=== PATIENT | male | born 1935 | race Caucasian/White ===

== ENCOUNTER 2021-05-06 19:09 | Inpatient (IN) | payer MEDICARE ==
[~2021-05-06] VITALS: Ht 175.3 cm; Wt 61.4 kg
[~2021-05-06 19:09] MED LIST: ASPI325 PO; CHOL10002; IRON325 MG PO; OXYC10ER PO; Percocet 5-3251 EACH PO; [UNRECOGNIZED DRUG - OTHER]
[2021-05-06 19:47] LABS: BASOPHILS ABSOLUTE AUTO 0.04 K/mm3 (0.00-0.23); BASOPHILS PERCENT AUTO 0 % (0-2); EOSINOPHILS ABSOLUTE AUTO 0.21 K/mm3 (0.00-0.68); EOSINOPHILS PERCENT AUTO 2 % (0-6); Hematocrit 39.6 % (37.0-53.0); Hemoglobin 13.8 g/dL (13.5-17.5); IMMATURE GRAN ABSOLUTE AUTO 0.08 K/mm3 (0.00-0.10); IMMATURE GRAN PERCENT AUTO 1 % (0-1); LYMPHOCYTES ABSOLUTE AUTO 0.53 K/mm3 (0.84-5.20); LYMPHOCYTES PERCENT AUTO 4 % (21-46); MONOCYTES PERCENT AUTO 18 % (4-13); Mean Corpuscular HGB 32.4 pg (26.0-34.0); Mean Corpuscular HGB Conc 34.8 g/dL (31.5-36.5); Mean Corpuscular Volume 93 fL (80-100); Mean Platelet Volume 10.1 fL (9.1-12.4); NEUTROPHILS ABSOLUTE AUTO 9.43 K/mm3 (1.96-9.15); NEUTROPHILS PERCENT AUTO 75 % (41-73); Platelet Count 161 K/mm3 (150-400); RDW Coefficient Variation 12.9 % (11.7-14.2); RDW Standard Deviation 43.9 fL (35.1-46.3); Red Blood Cell Count 4.26 M/mm3 (4.30-5.90); White Blood Cell Count 12.59 K/mm3 (4.00-11.30)
[2021-05-06 20:01] LABS: Alanine Aminotransfer (ALT/SGP 31 U/L (12-78); Albumin, Blood 3.5 g/dL (3.4-5.0); Albumin/Globulin Ratio 1.1 (0.8-1.8); Alk Phos 235 U/L (50-136); Anion Gap 7 mmol/L (6-16); Aspartate Aminotrans (AST/SGOT 57 U/L (12-37); Bilirubin, Total 1.2 mg/dL (0.1-1.0); Blood Urea Nitrogen 12 mg/dL (8-24); Bun/Creatinine Ratio 23.2 (12.0-20.0); CO2, Blood 29 mmol/L (21-32); Calcium, Blood 9.1 mg/dL (8.5-10.1); Chloride, Blood 100 mmol/L (98-108); Creatinine, Blood 0.52 mg/dL (0.60-1.20); Globulin, Blood 3.3 g/dL (2.2-4.0); Glomerular Filtration Rate >60 (60-); Glucose, Blood 156 mg/dL (70-99); Potassium, Blood 4.2 mmol/L (3.5-5.5); Sodium, Blood 136 mmol/L (136-145); Total Protein, Blood 6.8 g/dL (6.4-8.2)
[2021-05-06 21:12] LABS: Creatine Kinase MB 9.6 ng/mL (0.0-3.6); Creatine Kinase MB Index 0.9 (0.0-4.0)
[2021-05-06 21:13] LABS: Source, Urine Clean Catch
[2021-05-06 21:20] LABS: Bilirubin, Urine Neg (Neg); Blood, Urine 2+ (Neg); Glucose Qualitative, Urine Neg (Neg); Ketones, Urine 1+ (Neg); Leukocyte Esterase, Urine Neg (Neg); Nitrite, Urine Neg (Neg); Protein, Urine 2+ (Neg); Urobilinogen, Urine NORM (Normal)
[2021-05-06 21:26] LABS: Appearance, Urine Clear (Clear); Color, Urine Yellow (P-Yellow)
[2021-05-06 21:27] LABS: Bacteria Few /hpf; Red Blood Cells, Urine Rare /hpf (0-2); Squamous Epithelial Cells Many /hpf (Few); White Blood Cells, Urine Not Seen /hpf (0-5)
[2021-05-06 23:12] LABS: SARS-Cov-2 (COVID-19) PCR, MMC NEGATIVE (NEGATIVE)
--- NOTE | 2021-05-06 23:53 | NUR ---
LAB NOTIFIED OF TOX SCREEN TO ADD ON TO COLLECTED URINE SAMPLE FROM ER.
[2021-05-07 00:09] LABS: U Amphetamine Screen Not Detected; U Barbituate Screen Not Detected; U Benzodiazapine Screen Not Detected; U Buprenorphine Screen Not Detected; U Cannabinoids Screen Not Detected; U Cocaine Screen Not Detected; U Methadone Screen Not Detected; U Methamphetamine Screen Not Detected; U Opiates Screen Not Detected; U Oxycodone Screen Not Detected; U Phencyclidine Screen Not Detected; U Propoxyphene Screen Not Detected
--- NOTE | 2021-05-07 03:58 | NUR ---
SHIFT SUMMARY NO ACUTE CHANGES SINCE ARRIVAL TO FLOOR. PT HAS BEEN RESTING WELL. DENIES R HIP PAIN AT REST. NPO. IVF INFUSING PER ORDERS. ENCOURAGING PT TO USE BEDSIDE URINAL. BED ALARM IN PLACE FOR OCCASSIONAL CONFUSION. MONITORING CIWAS PER ORDERS. CALL LIGHT WITHIN REACH.
[2021-05-07 05:06] LABS: BASOPHILS ABSOLUTE AUTO 0.04 K/mm3 (0.00-0.23); BASOPHILS PERCENT AUTO 0 % (0-2); EOSINOPHILS ABSOLUTE AUTO 0.01 K/mm3 (0.00-0.68); EOSINOPHILS PERCENT AUTO 0 % (0-6); Hematocrit 38.1 % (37.0-53.0); Hemoglobin 13.1 g/dL (13.5-17.5); IMMATURE GRAN ABSOLUTE AUTO 0.03 K/mm3 (0.00-0.10); IMMATURE GRAN PERCENT AUTO 0 % (0-1); LYMPHOCYTES ABSOLUTE AUTO 0.83 K/mm3 (0.84-5.20); LYMPHOCYTES PERCENT AUTO 9 % (21-46); MONOCYTES ABSOLUTE AUTO 1.81 K/mm3 (0.16-1.47); MONOCYTES PERCENT AUTO 19 % (4-13); Mean Corpuscular HGB 32.3 pg (26.0-34.0); Mean Corpuscular HGB Conc 34.4 g/dL (31.5-36.5); Mean Corpuscular Volume 94 fL (80-100); Mean Platelet Volume 10.2 fL (9.1-12.4); NEUTROPHILS ABSOLUTE AUTO 6.73 K/mm3 (1.96-9.15); NEUTROPHILS PERCENT AUTO 71 % (41-73); Platelet Count 142 K/mm3 (150-400); RDW Standard Deviation 45.1 fL (35.1-46.3); Red Blood Cell Count 4.06 M/mm3 (4.30-5.90); White Blood Cell Count 9.45 K/mm3 (4.00-11.30)
[2021-05-07 05:40] LABS: Alanine Aminotransfer (ALT/SGP 26 U/L (12-78); Albumin, Blood 3.1 g/dL (3.4-5.0); Albumin/Globulin Ratio 0.9 (0.8-1.8); Alk Phos 199 U/L (50-136); Anion Gap 6 mmol/L (6-16); Aspartate Aminotrans (AST/SGOT 39 U/L (12-37); Bilirubin, Total 1.3 mg/dL (0.1-1.0); Blood Urea Nitrogen 12 mg/dL (8-24); Bun/Creatinine Ratio 21.8 (12.0-20.0); CO2, Blood 29 mmol/L (21-32); CPK Creatine Kinase 591 U/L (39-308); Calcium, Blood 8.1 mg/dL (8.5-10.1); Chloride, Blood 101 mmol/L (98-108); Creatinine, Blood 0.55 mg/dL (0.60-1.20); Globulin, Blood 3.3 g/dL (2.2-4.0); Glomerular Filtration Rate >60 (60-); Glucose, Blood 131 mg/dL (70-99); Potassium, Blood 3.9 mmol/L (3.5-5.5); Sodium, Blood 136 mmol/L (136-145); Total Protein, Blood 6.4 g/dL (6.4-8.2)
--- NOTE | 2021-05-07 14:23 | NUR ---
INTO SDS VIA BED FROM SURG FLOOR. History, Chart, Medications and Allergies reviewed before start of procedure.Patient confirms NPO status and agrees with scheduled surgery. Lungs clear T/O to Auscultation. Surgical site prepped with 2% Chlorhexidine cloth wipe.
--- NOTE | 2021-05-07 14:25 | NUR ---
PT TO SURGERY AT THIS TIME. OR CHECK LIST COMPLETED. IN A GOWN AND IV SALINE LOCKED.
--- NOTE | 2021-05-07 17:22 | NUR ---
05/07/21 172 Kaye Bañuelos PATIENT ARRIVED TO OR WITH QUARTER SIZE PRESSURE ULCERATION ABOVE RIGHT HIP, NOTIFED PRIOR TO SURGERY START.
--- NOTE | 2021-05-07 17:45 | NUR ---
SHIFT SUMMARY PT STATUS POST FOR R HIP CEPHALOMEDULLARY RODDING. PT IS A/O x3 AND HAS NO C/O PAIN. [address] GAUZE [address]AM [address]INGS [address] PL[address] ON THE R HIP CDI. TOLERATING REGULAR DIET. VSS. WILL REPORT TO ONCOMING RN.
[2021-05-08 04:38] LABS: BASOPHILS ABSOLUTE AUTO 0.01 K/mm3 (0.00-0.23); BASOPHILS PERCENT AUTO 0 % (0-2); EOSINOPHILS PERCENT AUTO 0 % (0-6); Hematocrit 31.5 % (37.0-53.0); Hemoglobin 10.8 g/dL (13.5-17.5); IMMATURE GRAN ABSOLUTE AUTO 0.03 K/mm3 (0.00-0.10); IMMATURE GRAN PERCENT AUTO 0 % (0-1); LYMPHOCYTES ABSOLUTE AUTO 0.63 K/mm3 (0.84-5.20); LYMPHOCYTES PERCENT AUTO 6 % (21-46); MONOCYTES ABSOLUTE AUTO 1.82 K/mm3 (0.16-1.47); MONOCYTES PERCENT AUTO 18 % (4-13); Mean Corpuscular HGB 32.4 pg (26.0-34.0); Mean Corpuscular HGB Conc 34.3 g/dL (31.5-36.5); Mean Corpuscular Volume 95 fL (80-100); Mean Platelet Volume 10.3 fL (9.1-12.4); NEUTROPHILS ABSOLUTE AUTO 7.39 K/mm3 (1.96-9.15); NEUTROPHILS PERCENT AUTO 75 % (41-73); Platelet Count 128 K/mm3 (150-400); RDW Coefficient Variation 12.9 % (11.7-14.2); Red Blood Cell Count 3.33 M/mm3 (4.30-5.90); White Blood Cell Count 9.88 K/mm3 (4.00-11.30)
[2021-05-08 05:01] LABS: Alanine Aminotransfer (ALT/SGP 25 U/L (12-78); Albumin, Blood 2.6 g/dL (3.4-5.0); Albumin/Globulin Ratio 0.9 (0.8-1.8); Alk Phos 144 U/L (50-136); Anion Gap 4 mmol/L (6-16); Aspartate Aminotrans (AST/SGOT 25 U/L (12-37); Bilirubin, Total 0.5 mg/dL (0.1-1.0); Blood Urea Nitrogen 14 mg/dL (8-24); Bun/Creatinine Ratio 23.6 (12.0-20.0); CO2, Blood 30 mmol/L (21-32); Calcium, Blood 7.9 mg/dL (8.5-10.1); Chloride, Blood 102 mmol/L (98-108); Creatinine, Blood 0.59 mg/dL (0.60-1.20); Glomerular Filtration Rate >60 (60-); Glucose, Blood 127 mg/dL (70-99); Magnesium, Blood 2.3 mg/dL (1.6-2.4); Potassium, Blood 4.2 mmol/L (3.5-5.5); Sodium, Blood 136 mmol/L (136-145); Total Protein, Blood 5.6 g/dL (6.4-8.2)
--- NOTE | 2021-05-08 07:27 | NUR ---
SHIFT SUMMARY POD1 R GAMMA RODDING, A/O X4, VSS, TOLERATING DIET, DENIES PAIN, AMBULATES c ASSISTANCE, VOIDING WELL. NO ACUTE EVENTS THIS SHIFT. CALL LIGHT IN REACH, REPORT GIVEN TO DAY RN.
--- NOTE | 2021-05-08 17:14 | NUR ---
summary NO ACUTE CHANGES T/O SHIFT. PT SITTING UP IN RECLINER W/FEET ELEVATED. WORKED W/THERAPY THIS SHIFT. TOLERATING DIET. MEDICATED ONCE DURING SHIFT W/TYLENOL PER ORDERS FOR R HIP PAIN. CALL LIGHT IN REACH.
[2021-05-09 04:50] LABS: BASOPHILS ABSOLUTE AUTO 0.05 K/mm3 (0.00-0.23); BASOPHILS PERCENT AUTO 1 % (0-2); EOSINOPHILS ABSOLUTE AUTO 0.05 K/mm3 (0.00-0.68); EOSINOPHILS PERCENT AUTO 1 % (0-6); Hematocrit 29.6 % (37.0-53.0); Mean Corpuscular HGB 32.3 pg (26.0-34.0); Mean Corpuscular HGB Conc 33.8 g/dL (31.5-36.5); Mean Corpuscular Volume 96 fL (80-100); Mean Platelet Volume 10.2 fL (9.1-12.4); Platelet Count 138 K/mm3 (150-400); RDW Coefficient Variation 12.8 % (11.7-14.2); RDW Standard Deviation 44.9 fL (35.1-46.3); White Blood Cell Count 5.93 K/mm3 (4.00-11.30)
[2021-05-09 04:57] LABS: IMMATURE GRAN ABSOLUTE AUTO 0.02 K/mm3 (0.00-0.10); IMMATURE GRAN PERCENT AUTO 0 % (0-1); LYMPHOCYTES ABSOLUTE AUTO 1.17 K/mm3 (0.84-5.20); LYMPHOCYTES PERCENT AUTO 20 % (21-46); MONOCYTES ABSOLUTE AUTO 1.05 K/mm3 (0.16-1.47); MONOCYTES PERCENT AUTO 18 % (4-13); NEUTROPHILS ABSOLUTE AUTO 3.59 K/mm3 (1.96-9.15); NEUTROPHILS PERCENT AUTO 61 % (41-73)
[2021-05-09 05:08] LABS: Anion Gap 3 mmol/L (6-16); Blood Urea Nitrogen 9 mg/dL (8-24); Bun/Creatinine Ratio 17.2 (12.0-20.0); CO2, Blood 32 mmol/L (21-32); CPK Creatine Kinase 167 U/L (39-308); Calcium, Blood 7.8 mg/dL (8.5-10.1); Chloride, Blood 101 mmol/L (98-108); Creatinine, Blood 0.52 mg/dL (0.60-1.20); Glomerular Filtration Rate >60 (60-); Glucose, Blood 97 mg/dL (70-99); Potassium, Blood 3.7 mmol/L (3.5-5.5); Sodium, Blood 136 mmol/L (136-145)
--- NOTE | 2021-05-09 08:04 | NUR ---
SUMMARY NO ACUTE CHANGES.
--- NOTE | 2021-05-09 17:50 | NUR ---
SHIFT SUMMARY PATIENT ALERT AND ORIENTED THROUGHTOUT SHIFT. TOLERATING REGULAR DIET AND FLUIDS. SBA WITH FWW AND GAIT BELT TO BATHROOM AND WALKED IN JAVIER WITH PHYSICAL THERAPY. PAIN CONTROLLED WITH PO PAIN MEDS. VOIDING WELL. BM THIS SHIFT. RIGHT HIP DRESSINGS CHANGED THIS SHIFT. PLAN TO DISCHARGE TO [facility] WHEN BED AVAIL.
--- NOTE | 2021-05-10 02:19 | NUR ---
SHIFT SUMMARY: POD 3 RIGHT HIP REPAIR PATIENT IS ALERT AND ORIENTED X4. VS ARE WNL AND IS ON RA. PAIN IS MANAGED WITH 1 NORCO. RIGHT HIP HAS 2 AQUACELS THAT ARE C/D/I. PATIENT IS A 1 PERSON ASSIST WITH FWW AND GAIT BELT. DENIES NUMBNESS AND TINGLING IN ALL EXTREMITIES. PATIENT IS TOLERATING PO INTAKE AND VOIDING. HE CALLS APPROPRIATELY. CALL LIGHT WITHIN REACH. THE PLAN IS TO BE DISCHARGED TO [facility] WHEN BED IS AVAILABLE. HE WILL CONTINUE TO WORK WITH PT IN THE MEANTIME.
[2021-05-10 04:18] LABS: BASOPHILS ABSOLUTE AUTO 0.04 K/mm3 (0.00-0.23); BASOPHILS PERCENT AUTO 1 % (0-2); EOSINOPHILS ABSOLUTE AUTO 0.11 K/mm3 (0.00-0.68); EOSINOPHILS PERCENT AUTO 2 % (0-6); Hemoglobin 9.5 g/dL (13.5-17.5); Mean Corpuscular HGB 32.4 pg (26.0-34.0); Mean Corpuscular HGB Conc 33.9 g/dL (31.5-36.5); Mean Corpuscular Volume 96 fL (80-100); Mean Platelet Volume 10.1 fL (9.1-12.4); Platelet Count 151 K/mm3 (150-400); RDW Coefficient Variation 12.7 % (11.7-14.2); RDW Standard Deviation 43.9 fL (35.1-46.3); Red Blood Cell Count 2.93 M/mm3 (4.30-5.90)
[2021-05-10 04:22] LABS: IMMATURE GRAN ABSOLUTE AUTO 0.02 K/mm3 (0.00-0.10); IMMATURE GRAN PERCENT AUTO 0 % (0-1); LYMPHOCYTES PERCENT AUTO 24 % (21-46); MONOCYTES ABSOLUTE AUTO 0.87 K/mm3 (0.16-1.47); MONOCYTES PERCENT AUTO 19 % (4-13); NEUTROPHILS ABSOLUTE AUTO 2.46 K/mm3 (1.96-9.15); NEUTROPHILS PERCENT AUTO 54 % (41-73)
[2021-05-10 12:47] LABS: SARS-Cov-2 (COVID-19) PCR, MMC NEGATIVE (NEGATIVE)
--- NOTE | 2021-05-10 18:45 | NUR ---
DISCHARGE TO [facility]. REPORT CALLED. IV REMOVED. PT DOING VERY WELL. EATING, DRINKING, VOIDING & HAVING BM's. AMBULATING WELL.
== END 2021-05-10 18:45 | DRG 956 ==
LOC: ER 19:09 → SURS 22:04
PROVIDERS: Family Medicine; Orthopaedic Surgery; Student in an Organized Health Care Education/Training Program; ADMIT Family Medicine
PROC: 0QS636Z Reposition Right Upper Femur with Intramedullary Internal Fixation Device, Percutaneous Approach (ICD-10-PCS; principal; 2021-05-07 15:00)
DX: S72.141A Displaced intertrochanteric fracture of right femur, initial encounter for closed fracture (principal); T79.6XXA Traumatic ischemia of muscle, initial encounter; S42.011A Anterior displaced fracture of sternal end of right clavicle, initial encounter for closed fracture; F10.10 Alcohol abuse, uncomplicated; D72.829 Elevated white blood cell count, unspecified; R41.82 Altered mental status, unspecified; R79.89 Other specified abnormal findings of blood chemistry; Z20.822 Contact with and (suspected) exposure to COVID-19; F17.210 Nicotine dependence, cigarettes, uncomplicated; Z79.899 Other long term (current) drug therapy; Z88.2 Allergy status to sulfonamides; Z98.890 Other specified postprocedural states; Z85.01 Personal history of malignant neoplasm of esophagus; W19.XXXA Unspecified fall, initial encounter; Y92.009 Unspecified place in unspecified non-institutional (private) residence as the place of occurrence of the external cause
CPT/HCPCS: 36415; 70450; 71045; 71260; 73030; 74177; 80048; 80053; 81001; 82550; 82553; 83735; 84145; 85025; 93005; 93010; 97110; 97116; 97161; 97166; 97530; 97535; 99285-25; A9270; C1713; C1769; G0480; J0171; J0690; J1100; J1650; J1885; J2250; J2405; J2704; J3010; J7030; J7120; Q9967; U0004

== ENCOUNTER 2023-06-17 20:47 | Emergency (ER) | payer MEDICARE ==
[~2023-06-17] VITALS: Ht 170.2 cm; Wt 54.4 kg
[2023-06-17 21:19] LABS: BASOPHILS ABSOLUTE AUTO 0.04 K/mm3 (0.00-0.23); BASOPHILS PERCENT AUTO 0 % (0-2); EOSINOPHILS PERCENT AUTO 0 % (0-6); Hematocrit 37.6 % (37.0-53.0); Hemoglobin 12.5 g/dL (13.5-17.5); IMMATURE GRAN PERCENT AUTO 1 % (0-1); LYMPHOCYTES PERCENT AUTO 7 % (21-46); MONOCYTES ABSOLUTE AUTO 1.43 K/mm3 (0.16-1.47); MONOCYTES PERCENT AUTO 13 % (4-13); Mean Corpuscular HGB 28.5 pg (26.0-34.0); Mean Corpuscular HGB Conc 33.2 g/dL (31.5-36.5); Mean Corpuscular Volume 86 fL (80-100); Mean Platelet Volume 10.3 fL (9.1-12.4); NEUTROPHILS ABSOLUTE AUTO 8.82 K/mm3 (1.96-9.15); NEUTROPHILS PERCENT AUTO 79 % (41-73); Platelet Count 297 K/mm3 (150-400); RDW Coefficient Variation 12.9 % (11.7-14.2); RDW Standard Deviation 40.1 fL (35.1-46.3); Red Blood Cell Count 4.38 M/mm3 (4.30-5.90); White Blood Cell Count 11.19 K/mm3 (4.00-11.30)
[2023-06-17 21:37] LABS: Albumin, Blood 2.8 g/dL (3.4-5.0); Albumin/Globulin Ratio 0.7 (0.8-1.8); Bilirubin, Total 0.8 mg/dL (0.1-1.0); Bun/Creatinine Ratio 18.6 (12.0-20.0); Calcium, Blood 8.4 mg/dL (8.5-10.1); Creatinine, Blood 0.49 mg/dL (0.60-1.20); Globulin, Blood 4.3 g/dL (2.2-4.0); Potassium, Blood 3.5 mmol/L (3.5-5.5); Total Protein, Blood 7.1 g/dL (6.4-8.2)
[2023-06-17 23:00] VITALS: BP 128/77
== END 2023-06-17 23:20 | disposition home or self-care (01) ==
LOC: ER 20:47
PROVIDERS: Emergency Medicine
DX: M25.552 Pain in left hip (principal); F17.200 Nicotine dependence, unspecified, uncomplicated; Z85.01 Personal history of malignant neoplasm of esophagus; Z88.2 Allergy status to sulfonamides; W18.30XA Fall on same level, unspecified, initial encounter
CPT/HCPCS: 71046; 73502; 80053; 83880; 84484; 85025; 93005; 93010; 99284-25

== ENCOUNTER 2023-07-26 13:38 | Inpatient (IN) | payer MEDICARE ==
[~2023-07-26] VITALS: Ht 170.2 cm; Wt 58.9 kg
[2023-07-26 14:00] LABS: Calcium, Ionized (POC) 1.08 mmol/L (1.10-1.46); Chloride (POC) 89 mmol/L (98-108); Creatinine (POC) 0.4 mg/dL (0.8-1.3); Glucose (ISTAT POC) 105 mg/dL (70-99); Hemoglobin (POC) 9.5 g/dL (13.5-17.5); Potassium (POC) 3.2 mmol/L (3.5-5.5); Sodium (POC) 126 mmol/L (135-148); Total CO2 (POC) 26 mmol/L (21-32)
[2023-07-26 14:19] LABS: BASOPHILS ABSOLUTE AUTO 0.02 K/mm3 (0.00-0.23); BASOPHILS PERCENT AUTO 0 % (0-2); EOSINOPHILS ABSOLUTE AUTO 0.02 K/mm3 (0.00-0.68); EOSINOPHILS PERCENT AUTO 0 % (0-6); Hematocrit 28.1 % (37.0-53.0); Hemoglobin 9.3 g/dL (13.5-17.5); IMMATURE GRAN ABSOLUTE AUTO 0.49 K/mm3 (0.00-0.10); IMMATURE GRAN PERCENT AUTO 5 % (0-1); LYMPHOCYTES ABSOLUTE AUTO 0.81 K/mm3 (0.84-5.20); LYMPHOCYTES PERCENT AUTO 8 % (21-46); MONOCYTES ABSOLUTE AUTO 1.38 K/mm3 (0.16-1.47); MONOCYTES PERCENT AUTO 13 % (4-13); Mean Corpuscular HGB 27.7 pg (26.0-34.0); Mean Corpuscular HGB Conc 33.1 g/dL (31.5-36.5); Mean Corpuscular Volume 84 fL (80-100); Mean Platelet Volume 10.9 fL (9.1-12.4); NEUTROPHILS ABSOLUTE AUTO 7.68 K/mm3 (1.96-9.15); NEUTROPHILS PERCENT AUTO 74 % (41-73); Platelet Count 123 K/mm3 (150-400); RDW Coefficient Variation 14.6 % (11.7-14.2); RDW Standard Deviation 44.6 fL (35.1-46.3); Red Blood Cell Count 3.36 M/mm3 (4.30-5.90)
[2023-07-26 14:28] LABS: Alanine Aminotransfer (ALT/SGP 11 U/L (12-78); Albumin, Blood 2.1 g/dL (3.4-5.0); Albumin/Globulin Ratio 0.6 (0.8-1.8); Alk Phos 90 U/L (50-136); Anion Gap 7 mmol/L (6-16); Aspartate Aminotrans (AST/SGOT 21 U/L (12-37); Bilirubin, Total 0.9 mg/dL (0.1-1.0); Blood Urea Nitrogen 10 mg/dL (8-24); Bun/Creatinine Ratio 19.4 (12.0-20.0); CO2, Blood 28 mmol/L (21-32); Calcium, Blood 7.6 mg/dL (8.5-10.1); Chloride, Blood 95 mmol/L (98-108); Creatinine, Blood 0.52 mg/dL (0.60-1.20); Globulin, Blood 3.3 g/dL (2.2-4.0); Glomerular Filtration Rate 99 (60-); Glucose, Blood 107 mg/dL (70-99); Magnesium, Blood 2.1 mg/dL (1.6-2.4); Phosphorus, Blood 2.5 mg/dL (2.5-4.9); Potassium, Blood 3.3 mmol/L (3.5-5.5); Sodium, Blood 130 mmol/L (136-145); Total Protein, Blood 5.4 g/dL (6.4-8.2)
[2023-07-26 18:48] LABS: Percent Saturation 10.2 % (20.0-50.0)
--- NOTE | 2023-07-26 19:40 | NUR ---
1855 ASSUMED PT FROM ER PATIENT IS AWAKE AND ALERT TO SELF. PATIENT CAME WITH HIS DAUGHTER WHO HAS BEEN HIS CAREGIVER FOR A WHILE NOW. PATIENT VS STABLE PULSE SINUS 90'S FEBRILE 100.1 F. PTS WEIGHT 123LBS, HE IS VERY THIN AND FRAILE AND DANIELLE. HE HAS TWO WOUNDS TO HIS BACK, PICTURES TAKEN. VERY DANIELLE COCCYX WITH AN OPEN ABRASED WOUND AND SPINE MID BACK ABRASION WOUND AND A FAT PAD THAT IS PURPLE RIGHT NEXT TO IT. PATIENT DENIES PAIN EXCEPT WHEN BP CUFF GOES OFF. HE WAS COVERED WITH LOOSE DRY STOOL ON HIS THIGHS AND WAS PROMPTLY BATHED BY DIRECTOR OF MATH AND RN. HEH TWO PERIPHERAL IVS BILAT AC AND POTASSIUM IV GOING INTO ONE OF THE IV'S. REPORT GIVEN TO NEXT ONCOMING SHIFT TO RESUME CARE.
[2023-07-26 20:30] VITALS: BP 112/57
[2023-07-27] VITALS (24 sets, daily range): BP systolic 69–116; BP diastolic 47–75
[2023-07-27 05:51] LABS: Hemoglobin 9.6 g/dL (13.5-17.5); Mean Corpuscular HGB 27.9 pg (26.0-34.0); Mean Corpuscular HGB Conc 34.3 g/dL (31.5-36.5); Mean Corpuscular Volume 81 fL (80-100); Mean Platelet Volume 10.8 fL (9.1-12.4); Platelet Count 103 K/mm3 (150-400); RDW Coefficient Variation 14.6 % (11.7-14.2); RDW Standard Deviation 43.1 fL (35.1-46.3); Red Blood Cell Count 3.44 M/mm3 (4.30-5.90); White Blood Cell Count 13.29 K/mm3 (4.00-11.30)
[2023-07-27 06:19] LABS: Bun/Creatinine Ratio 22.4 (12.0-20.0); Calcium, Blood 7.6 mg/dL (8.5-10.1); Creatinine, Blood 0.49 mg/dL (0.60-1.20); Free Thyroxine 1.14 ng/dL (0.70-1.60); Magnesium, Blood 2.1 mg/dL (1.6-2.4); Potassium, Blood 3.9 mmol/L (3.5-5.5)
--- NOTE | 2023-07-27 06:19 | NUR ---
SHIFT SUMMARY PATIENT ALERT AND ORIENTED X 2-3. FORGETFUL, GENERALIZED WEAKNESS. HAD NO COMPLAINTS OF PAIN OR SHORTNESS OF BREATH. ON ROOM AIR WITH SPO2 >90%. BLOOD PRESSURE STABLE, NO EVENTS ON TELE. NO ACUTE ISSUES NOTED OVERNIGHT. WILL CONTINUE TO MONITOR. CALL LIGHT WITHIN REACH.
--- NOTE | 2023-07-27 08:20 | NUR ---
Assumed care of pt at 0700. Report received from Freida GUTIERREZ. Pt sleeping at time of report but woke up without difficulty for breakfast. Hard of hearing, talkative. A&O x 1. Sinus rhythm, rate 90. BP stable. SpO2 97% room air.
--- NOTE | 2023-07-27 12:23 | NUR ---
CALL TO this rn called md fairchild due to patient being hypotensive and symptomatic. md fairchild ordered a one time 1000 liter fluid bolus. bolus infusing and patient bp improving. see vital signs section for further detials.
--- NOTE | 2023-07-27 13:00 | NUR ---
Care handoff to Lindsay GUTIERREZ.
--- NOTE | 2023-07-27 13:15 | NUR ---
CARE ASSUMPTION this rn assumed care at approx 1300. blood pressure hypotensive and receiving fluid bolus at assumption of care. daughter, flavia, at bedside. update on patient condition. patient is alert and oriented x2. intermittent confusion. tele sr 75 at this time. see shift assessment and pervious notes for further detials.
--- NOTE | 2023-07-27 14:50 | NUR ---
SVT 1413 PT WENT INTO SVT 170'S WITH A BP OF 58/45, PT WAS AWAKE/ALERT, WE ATTEMPTED VAGAL MANEUVER WHILE CHARGE NURSE CALLED DR. LANDIS. BOLUS WAS STARTED. 1430 DR. LANDIS IN ROOM, 1ST DOSE OF ADENOSINE GIVE 6MG, HR CAME DOWN FOR APPROX 10 SECONDS THEN BACK UP TO 160'S 1431 SECOND DOSE OF ADENOSINE 12MG GIVEN. PT HAD A 5.84 SECOND PAUSE, THEN WENT INTO NSR IN THE 60-70'S WITH STABLE BP. PT IS AWAKE AND DENIES COMPLAINTS, CRASH CART IS PARKED OUTSIDE OF ROOM.
--- NOTE | 2023-07-27 15:52 | NUR ---
Spoke with Primary RN Lindsay, RN Ground Crew Chief Dr Pedro Hill, and discussed case. Family may benefit from code status discussion and advanced care planning. Pt had another bout of SVT. Pt resting in bed upon arrival. Pt A&OX2-3. Pt appropriately verbalizes current place, struggles with reason for hospital stay, and not able to verbalize current year. Pt denies pain at this time. Offered supportive visit and therapeutic listening. Pt agreeable for this RN to call daughter Nichole and provide update. Called and spoke with daughter Tessa. Provided update and reviewed plan of care. Engaged in therapeutic listening as Tessa reports Pt has struggled since his 's passing in 2012. Pt has fallen into a failure to thrive mode. 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 Pt does still have bladder cancer and used to see his urologist approximately every 6 months to have the tumors removed. Pt has stopped having this done and Pt no longer active. Currently Pt is living with daughter. Pt's appetite is poor and requires assistance with dressing and bathing. Engaged in therapeutic discussion regarding advanced care planning. Gentle education on disease process including trajectory. Discussed the importance of planning for the future including the potential need to consider hospice. Discussed code status wishes with daughter as well. Educated on life sustaing treatments including risks and implications to CPR. Daughter reports Pt's wishes are to be DNR. Daughter reports Pt would be agreeable to be transfered to ICU and receive medications to keep blood pressure up if needed or recommended. Provided Palliative Care contact information and instructed daughter to call with any questions or concerns. [facility] per V/O from Dr Vasquez. Palliative Care will remain available
--- NOTE | 2023-07-27 17:47 | NUR ---
SHIFT SUMMARY see pervious notes for changes throughout the shift. patient blood pressure remains hypotensive, maps >65 at this time. see vitals. updated daughter peggi at bedside. no acute changes since pervious note. daughter at bedside.
[2023-07-28] VITALS (15 sets, daily range): BP systolic 81–126; BP diastolic 46–113
[2023-07-28 01:36] LABS: Source, Urine Voided
[2023-07-28 01:39] LABS: Bilirubin, Urine Neg (Neg); Blood, Urine 3+ (Neg); Glucose Qualitative, Urine Neg (Neg); Ketones, Urine 1+ (Neg); Leukocyte Esterase, Urine 1+ (Neg); Nitrite, Urine Neg (Neg); Protein, Urine Neg (Neg); Specific Gravity, Urine 1.025 (1.003-1.022); Urobilinogen, Urine 2+ (Normal)
[2023-07-28 01:51] LABS: Appearance, Urine Hazy (Clear); Color, Urine Yellow (P-Yellow)
[2023-07-28 01:52] LABS: Bacteria Many /hpf; Squamous Epithelial Cells Few /hpf (Few)
[2023-07-28 04:12] LABS: BASOPHILS ABSOLUTE AUTO 0.02 K/mm3 (0.00-0.23); BASOPHILS PERCENT AUTO 0 % (0-2); EOSINOPHILS ABSOLUTE AUTO 0.01 K/mm3 (0.00-0.68); EOSINOPHILS PERCENT AUTO 0 % (0-6); Hematocrit 26.7 % (37.0-53.0); Hemoglobin 8.9 g/dL (13.5-17.5); IMMATURE GRAN ABSOLUTE AUTO 0.06 K/mm3 (0.00-0.10); IMMATURE GRAN PERCENT AUTO 1 % (0-1); LYMPHOCYTES ABSOLUTE AUTO 0.93 K/mm3 (0.84-5.20); LYMPHOCYTES PERCENT AUTO 11 % (21-46); MONOCYTES ABSOLUTE AUTO 0.97 K/mm3 (0.16-1.47); MONOCYTES PERCENT AUTO 12 % (4-13); Mean Corpuscular HGB 27.8 pg (26.0-34.0); Mean Corpuscular HGB Conc 33.3 g/dL (31.5-36.5); Mean Corpuscular Volume 83 fL (80-100); Mean Platelet Volume 10.7 fL (9.1-12.4); NEUTROPHILS ABSOLUTE AUTO 6.26 K/mm3 (1.96-9.15); NEUTROPHILS PERCENT AUTO 76 % (41-73); Platelet Count 131 K/mm3 (150-400); RDW Coefficient Variation 14.8 % (11.7-14.2); RDW Standard Deviation 45.1 fL (35.1-46.3); White Blood Cell Count 8.25 K/mm3 (4.00-11.30)
[2023-07-28 04:29] LABS: Bun/Creatinine Ratio 20.9 (12.0-20.0); Calcium, Blood 7.3 mg/dL (8.5-10.1); Creatinine, Blood 0.48 mg/dL (0.60-1.20); Magnesium, Blood 1.9 mg/dL (1.6-2.4); Potassium, Blood 3.6 mmol/L (3.5-5.5)
--- NOTE | 2023-07-28 06:22 | NUR ---
SHIFT SUMMARY PATIENT ALERT AND ORIENTED X 2-3. PATIENT CONTINUES TO BE HYPOTENSIVE, MAP REMAINING ABOVE 65. AT 2334 PATIENT CONVERTED INTO SVT IN THE 170'S, HE WAS ASYMPTOMATIC AND SELF CONVERTED BACK TO SINUS RHYTHM ABOUT FOUR MINUTES LATER. PATIENT REPORTS HAVING DIFFICULTY URINATING, BLADDER SCANNED THE PATIENT ON TWO SEPARATE OCCASIONS, BOTH SCANS WERE LESS THAN 400 ML. MEDICATED PER EMAR FOR A HEAD ACHE THIS MORNING. CONTINUES ON ROOM AIR. WILL CONTINUE TO MONITOR. CALL LIGHT WITHIN REACH.
--- NOTE | 2023-07-28 09:22 | NUR ---
CARE ASSUMPTION this rn assumed care at 0700. blood pressure hypotensive maps range from 60-70s. tele sr 70s. patient is alert and oriented x2-3. patient knowns the time of day, that he is in the hospital, and why he is here. patient has intermittent confusion at times. patient states he is in the basement and doesnt want to be a "cellar rat" this rn said he wasn't in the basement and he said i know im in the hospital, but its dark. this rn opened the windows and turned the light on for the patient and showed him the tree changing colors, which seemed to improve the patient mentation. patient reports no pain, chest pain/pressure, or shortness of breath. patient has clear lung sounds. no runs of svt since this rn has assumed care. see shift assessment for further detials. patient worked with physical therapy, occupational therapy, and speech today. see their assessment for further detials. plan of care is up to date.
--- NOTE | 2023-07-28 17:34 | NUR ---
Supportive visit this afternoon. Pt resting in bed and appears more energetic compared to yesterday. Pt still appears mildly confused. Daughter Nichole at bedside. Offered therapeutic listening. Provided brief and gentle education regarding planning for the future. Discussed considering completing POLST. Brief education on each section to complete. Nichole reports after discussion with her brother yesterday family feel Pt's wishes are to be DNR and not Limited Code. She reports Pt would not want to be intubated or have CPR. She is agreeable to have code status changed to DNR. Other family members arrive to visit. Ended visit to allow family to visit. Spoke with Dr Vasquez and discussed case. Placed DNR order in [facility] per V/O from Dr Vasquez. Plan: Obtain copy of POLST if family completes before D/C. Palliative Care will remain available
--- NOTE | 2023-07-28 17:40 | NUR ---
shift summary patient neuro remains intact. family udated and currently at bedside. patient code statu changed from limited to a dnr. order is in. arm band on left arm. no acute changes. bp improved with maps >65. plan of care is up to date.
[2023-07-29] VITALS (9 sets, daily range): BP systolic 96–129; BP diastolic 56–68
[2023-07-29 04:12] LABS: BASOPHILS ABSOLUTE AUTO 0.02 K/mm3 (0.00-0.23); BASOPHILS PERCENT AUTO 0 % (0-2); EOSINOPHILS ABSOLUTE AUTO 0.01 K/mm3 (0.00-0.68); EOSINOPHILS PERCENT AUTO 0 % (0-6); Hematocrit 24.1 % (37.0-53.0); Hemoglobin 8.1 g/dL (13.5-17.5); IMMATURE GRAN ABSOLUTE AUTO 0.08 K/mm3 (0.00-0.10); IMMATURE GRAN PERCENT AUTO 1 % (0-1); LYMPHOCYTES ABSOLUTE AUTO 1.43 K/mm3 (0.84-5.20); LYMPHOCYTES PERCENT AUTO 22 % (21-46); MONOCYTES ABSOLUTE AUTO 1.07 K/mm3 (0.16-1.47); MONOCYTES PERCENT AUTO 16 % (4-13); Mean Corpuscular HGB 27.9 pg (26.0-34.0); Mean Corpuscular HGB Conc 33.6 g/dL (31.5-36.5); Mean Corpuscular Volume 83 fL (80-100); Mean Platelet Volume 10.5 fL (9.1-12.4); NEUTROPHILS ABSOLUTE AUTO 3.98 K/mm3 (1.96-9.15); NEUTROPHILS PERCENT AUTO 60 % (41-73); Platelet Count 148 K/mm3 (150-400); RDW Coefficient Variation 14.8 % (11.7-14.2); RDW Standard Deviation 44.9 fL (35.1-46.3); White Blood Cell Count 6.59 K/mm3 (4.00-11.30)
[2023-07-29 04:47] LABS: Bun/Creatinine Ratio 25.1 (12.0-20.0); Creatinine, Blood 0.44 mg/dL (0.60-1.20); Magnesium, Blood 1.8 mg/dL (1.6-2.4); Potassium, Blood 3.4 mmol/L (3.5-5.5)
--- NOTE | 2023-07-29 06:11 | NUR ---
END OF SHIFT NOTE NO ACUTE EVENTS THIS SHIFT. PT REMAINS ORIENTED X2-3, PLEASANTLY CONFUSED. PT ABLE TO COMMUNICATE NEEDS WITH STAFF. NO RUNS OF SVT THIS SHIFT. HR 80-100'S, SR/ST. SBP 90-110'S, DENIES CHEST PAIN/PRESSURE. SPO2 >95% ON RA, DENIES SOB. PT REPORTS HEADACHE, MEDICATED PER EMAR. PT REPOSITIONED Q2HR AND NEEDED T/O SHIFT FOR COMFORT. 2 LIQUID BM'S THIS SHIFT, ATTENDS CHANGED TO KEEP C/D/I. ABLE TO USE URINAL W/ ASSISTANCE. PT DID PULL OUT IV CATHETER STATING HE FELT ALL TANGLED UP; IV CATHETER TIP INTACT AND NEW IV PLACED BY THIS RN. CALL LIGHT WITHIN REACH, BED IN LOWEST POSITION. WILL REPORT TO ONCOMING RN.
--- NOTE | 2023-07-29 07:00 | NUR ---
Received in room report from Noc RN. Patient is awake and aid is working with him. He is alert and oriented to simple questions and makes other ongoing confusing statments. He follow basic commands and is able to communicate needs. He is on RA and sats >90%. He is able to MAEW but remains weak. He has been scrathing his right arm where he has some small scabs and making them bleed, will cover with dressings. He has 20 ga IV to LAC and is infusing curently TKO. Patient denies any current needs. Patient has urinal at bedside and calls for assistance.
--- NOTE | 2023-07-29 10:52 | NUR ---
Patient has been up in chair since early this am and tolerating well. He was given am PO meds and tolerated well. Aid working with patient for bath now.
--- NOTE | 2023-07-29 12:30 | NUR ---
Patialeena had several Liquid BM's while cleaning him up. He is back to bed. He remains on RA and sats >90%. He stated not very hungry. PT worked with him for a little bit and he tolerated well. No significant changes with patient.
--- NOTE | 2023-07-29 15:17 | NUR ---
Patient has been sleeping in bed and has participated in Care Had Dr Jessenia tracy to help with loose stools. He has been tolerating liquid intake. He remains oriented and when awake loves to talk abou stories. he is on RA and sats >90%. He is a full one person assist. He has urinal at bedside and needs a liitle assistance to position at times.
--- NOTE | 2023-07-29 17:20 | NUR ---
TRANSFER: PT TRANSFERRED TO [facility]. REPORT GIVEN TO MATT MARTIN. FAMILY NOTIFIED. ALL BELONGINGS WITH PT.
[2023-07-30 01:03] LABS: BASOPHILS ABSOLUTE AUTO 0.02 K/mm3 (0.00-0.23); BASOPHILS PERCENT AUTO 0 % (0-2); EOSINOPHILS ABSOLUTE AUTO 0.02 K/mm3 (0.00-0.68); EOSINOPHILS PERCENT AUTO 0 % (0-6); Hematocrit 25.7 % (37.0-53.0); Hemoglobin 8.6 g/dL (13.5-17.5); IMMATURE GRAN ABSOLUTE AUTO 0.07 K/mm3 (0.00-0.10); IMMATURE GRAN PERCENT AUTO 1 % (0-1); LYMPHOCYTES ABSOLUTE AUTO 1.16 K/mm3 (0.84-5.20); LYMPHOCYTES PERCENT AUTO 19 % (21-46); MONOCYTES ABSOLUTE AUTO 0.91 K/mm3 (0.16-1.47); MONOCYTES PERCENT AUTO 15 % (4-13); Mean Corpuscular HGB 27.7 pg (26.0-34.0); Mean Corpuscular HGB Conc 33.5 g/dL (31.5-36.5); Mean Corpuscular Volume 83 fL (80-100); Mean Platelet Volume 10.2 fL (9.1-12.4); NEUTROPHILS ABSOLUTE AUTO 4.03 K/mm3 (1.96-9.15); NEUTROPHILS PERCENT AUTO 65 % (41-73); Platelet Count 164 K/mm3 (150-400); RDW Coefficient Variation 15.2 % (11.7-14.2); RDW Standard Deviation 45.6 fL (35.1-46.3); Red Blood Cell Count 3.11 M/mm3 (4.30-5.90); White Blood Cell Count 6.21 K/mm3 (4.00-11.30)
[2023-07-30 01:21] LABS: Albumin, Blood 1.6 g/dL (3.4-5.0); Anion Gap 3 mmol/L (6-16); Blood Urea Nitrogen 11 mg/dL (8-24); Bun/Creatinine Ratio 25.9 (12.0-20.0); CO2, Blood 27 mmol/L (21-32); Calcium, Blood 7.2 mg/dL (8.5-10.1); Chloride, Blood 105 mmol/L (98-108); Creatinine, Blood 0.42 mg/dL (0.60-1.20); Glomerular Filtration Rate 105 (60-); Glucose, Blood 92 mg/dL (70-99); Magnesium, Blood 1.9 mg/dL (1.6-2.4); Phosphorus, Blood 1.9 mg/dL (2.5-4.9); Potassium, Blood 4.1 mmol/L (3.5-5.5); Sodium, Blood 135 mmol/L (136-145); Vancomycin, Trough 13.3 ug/mL (5.0-10.0)
[2023-07-30 04:39] VITALS: BP 132/65
--- NOTE | 2023-07-30 04:39 | NUR ---
SHIFT SUMMARY PATIENT IS ALERT AND ORIENTED TO SELF ONLY. PATIENT HAS REPORTED NO ACUTE EVENTS THIS SHIFT. PATIENT HAS REPORTED NO PAIN, SOB, VOMITTING OR NAUSEA THIS SHIFT. PATIENT IS INCREASINGLY CONFUSED. PATIENT HAS BEEN RESTING MOST OF SHIFT. ABX INFUSING ORDERED. BED IN LOCKED AND LOWEST POSITION. CALL LIGHT IN PLACE. WILL MONITOR UNTIL SHIFT CHANGE.
[2023-07-30 07:51] VITALS: BP 118/60
--- NOTE | 2023-07-30 09:00 | NUR ---
pt laying in bed with eyes closed, wakes easily, knows where he is but is talking about things that have no context, or fits anything, is redirectable, and follows commands well, lungs are clear a bit dim in bases, on r/a, no cough noted, hrirr, but pt is speaking while listening, and diff to hear, piv to left ac, site is clear and patent, btx4, abd flat soft nontender, incont, briefs in place, will try to use urinal at times, skin is c/w/d, pale, moves arms well, is two person to turn, yovanny, call light in reach.
--- NOTE | 2023-07-30 15:16 | NUR ---
Pt having very loose stools, did a bed change and attends change, visitors in room. mri called and wants to try doing mri at 1600. call light in reach.
--- NOTE | 2023-07-30 18:07 | NUR ---
pt had MRI, returned back to room, daughter in to visit. no acute changes this shift. call light in reach.
[2023-07-30 19:43] VITALS: BP 102/79
[2023-07-31 04:49] VITALS: BP 116/66
--- NOTE | 2023-07-31 05:00 | NUR ---
SHIFT SUMMARY PATIENT IS ALERT AND ORIENTED X2. PATIENT HAS HAD NO ACUTE EVENTS THIS SHIFT. VITAL SIGNS REVIEWED. PATIENT IS RESTING COMFORTABLY IN BED MOST OF NIGHT. PATIENT HAS NOT COMPLAINED OF PAIN, NAUSEA, SOB OR VOMITTING THIS SHIFT. BED IN LOCKED AND LOWEST POSITION. ABX INFUSED ORDERED.
[2023-07-31 05:09] LABS: BASOPHILS ABSOLUTE AUTO 0.05 K/mm3 (0.00-0.23); BASOPHILS PERCENT AUTO 1 % (0-2); EOSINOPHILS ABSOLUTE AUTO 0.03 K/mm3 (0.00-0.68); EOSINOPHILS PERCENT AUTO 0 % (0-6); Hematocrit 27.2 % (37.0-53.0); IMMATURE GRAN ABSOLUTE AUTO 0.07 K/mm3 (0.00-0.10); IMMATURE GRAN PERCENT AUTO 1 % (0-1); LYMPHOCYTES ABSOLUTE AUTO 1.28 K/mm3 (0.84-5.20); LYMPHOCYTES PERCENT AUTO 18 % (21-46); MONOCYTES ABSOLUTE AUTO 0.93 K/mm3 (0.16-1.47); MONOCYTES PERCENT AUTO 13 % (4-13); Mean Corpuscular HGB 27.7 pg (26.0-34.0); Mean Corpuscular HGB Conc 33.1 g/dL (31.5-36.5); Mean Corpuscular Volume 84 fL (80-100); Mean Platelet Volume 10.3 fL (9.1-12.4); NEUTROPHILS ABSOLUTE AUTO 4.74 K/mm3 (1.96-9.15); NEUTROPHILS PERCENT AUTO 67 % (41-73); Platelet Count 184 K/mm3 (150-400); RDW Coefficient Variation 15.2 % (11.7-14.2); Red Blood Cell Count 3.25 M/mm3 (4.30-5.90)
[2023-07-31 05:34] LABS: Albumin, Blood 1.7 g/dL (3.4-5.0); Anion Gap 3 mmol/L (6-16); Blood Urea Nitrogen 13 mg/dL (8-24); Bun/Creatinine Ratio 34.2 (12.0-20.0); CO2, Blood 29 mmol/L (21-32); Calcium, Blood 7.3 mg/dL (8.5-10.1); Chloride, Blood 103 mmol/L (98-108); Creatinine, Blood 0.38 mg/dL (0.60-1.20); Glomerular Filtration Rate 109 (60-); Glucose, Blood 101 mg/dL (70-99); Phosphorus, Blood 2.2 mg/dL (2.5-4.9); Sodium, Blood 135 mmol/L (136-145)
[2023-07-31 07:49] VITALS: BP 105/64
[2023-07-31 13:26] LABS: Vancomycin, Trough 14.9 ug/mL (5.0-10.0)
[2023-07-31 13:53] VITALS: BP 110/63
[2023-07-31 15:10] VITALS: BP 102/58
--- NOTE | 2023-07-31 18:06 | NUR ---
SHIFT SUMMARY A&OX1-2, COOPERATIVE WITH MOST OF THE CARE. DELUSIONAL AT TIMES. PATIENT SLEPT T/O SHIFT. PARTICIPATED WITH THERAPY. DENIED ANY CP/PRESSURE, HEADACHE, DIZZINESS, OR SOB. ROOM AIR WITH CLEAR/DIMINISHED LUNG SOUNDS THROUGHOUT. NO TELE EVENTS REPORTED. APPETITE POOR, HARDLY ATE BREAKFAST OR LUNCH AND REFUSED SUPPLEMENTAL ENSURES. SKIN TEAR NOTED NEAR LEFT ELBOR, PHOTO TAKEN AND ADDED TO CHART. WOUND CLEANSED WITH NS AND COVERED WITH A DRY DRESSING. DAUGHTER AT BEDSIDE. PATIENT EATING DINNER AT THIS TIME.
[2023-07-31 19:51] VITALS: BP 115/66
[2023-08-01] VITALS (7 sets, daily range): BP systolic 89–128; BP diastolic 54–83
--- NOTE | 2023-08-01 04:14 | NUR ---
SHIFT SUMMARY PATIENT IS ALERT AND ORIENTED TO SELF AND LOCATION ONLY. PATIENT HAS HAD NO ACUTE EVENTS THIS SHIFT. VITAL SIGNS REVIEWED. PATIENT HAS NOT COMPLAINED OF PAIN, SOB, NAUSEA OR VOMITTING THIS SHIFT. PATIENT HAS BEEN RESTING THIS SHIFT. IV ABX INFUSED ORDERED. BED IN LOCKED AND LOWEST POSITION. CALL LIGHT IN PLACE. WILL MONITOR UNTIL SHIFT CHANGE.
[2023-08-01 05:39] LABS: Albumin, Blood 1.6 g/dL (3.4-5.0); Anion Gap 3 mmol/L (6-16); Blood Urea Nitrogen 12 mg/dL (8-24); Bun/Creatinine Ratio 27.2 (12.0-20.0); CO2, Blood 29 mmol/L (21-32); Calcium, Blood 7.3 mg/dL (8.5-10.1); Chloride, Blood 101 mmol/L (98-108); Creatinine, Blood 0.44 mg/dL (0.60-1.20); Glomerular Filtration Rate 104 (60-); Glucose, Blood 90 mg/dL (70-99); Phosphorus, Blood 2.6 mg/dL (2.5-4.9); Potassium, Blood 3.9 mmol/L (3.5-5.5); Sodium, Blood 133 mmol/L (136-145)
--- NOTE | 2023-08-01 18:36 | NUR ---
SHIFT SUMMARY A&OX3-4, COOPERATIVE WITH CARE. APPETITE BETTER TODAY, BUT PT WAS SCARED TO EAT BECAUSE OF HAVING RUNNY BM'S X2 TODAY. KILN DOOR REPAIRER RAYSHAWN MET WITH PATIENT AND SUGGESTED NO CAFFEINE, CREON, AND PRN IMMODIUM FOR PT. DR CARRERA VERBALIZED SHE WOULD ORDER THOSE TOMORROW. MEPILEXES REPLACED ON PT'S COCCYX AND UPPER BACK. BOTH SORES ARE OPEN, NO DRAINAGE, AND BLANCHABLE UPON ASSESSMENT THIS MORNING. PATIENT PULLED HIS IV OUT AT 1630 AND A NEW IV PLACED IN R HAND 22G. NO ACUTE CHANGES THIS SHIFT. CT OF ABD/PELVIS DONE. PLAN IS FOR DISCHARGE TO SNF (REQUESTING [facility]) WHEN THERE HAS BEEN NO BLOOD CULTURE GROWTH IN 48HRS. PATIENT'S DAUGHTER IN THE ROOM. BED IN LOWEST POSITION. CALL LIGHT IN REACH.
[2023-08-02 03:01] VITALS: BP 106/70
--- NOTE | 2023-08-02 04:58 | NUR ---
SHIFT SUMMARY NOC PT A/O X 2. PLEASANTLY CONFUSED AND COOPERATIVE WITH CARE. PT HAS MULTIPLE WOUNDS ON COCCYX AND MIDDLE UPPER BACK WITH MEPILEX DRESSING C/D/I. PT BLOOD CULTURES ARE PENDING AND PT IS RECEIVING VANCO ABX COVERAGE. PT HAS HAD ONCE LOOSE INC STOOL SO FAR DURING SHIFT. PT HAS BEEN CONTINENT OF URINE WITH 1PA WITH URINAL. PT ON TELE RUNNING NSR IN 70'S. PT IS CURRENTLY RESTING WITH BED IN LOWEST POSITION, AND CALL LIGHT WITHIN REACH.
[2023-08-02 07:55] VITALS: BP 110/70
[2023-08-02] MEDS ORDERED: ACET325 PO (12:33)
[2023-08-02] MEDS ORDERED: JUVEN PACKET1 EAC3 PO (12:34)
[2023-08-02] MEDS ORDERED: BANATROL PLUS1 EAC1 PO (12:39)
[2023-08-02] MEDS ORDERED: CREON DR 12,001 EACH PO (12:47)
[2023-08-02] MEDS ORDERED: LOPE2C PO (12:51)
[2023-08-02] MEDS ORDERED: METO25 PO (12:55)
[2023-08-02] MEDS ORDERED: MIDO5 PO (12:57)
[2023-08-02] MEDS ORDERED: MULTIPLE VITAM1 EACH PO (13:01)
[2023-08-02] MEDS ORDERED: [UNRECOGNIZED DRUG - OTHER] IV (13:09)
[2023-08-02] MEDS ORDERED: Promod946 ML PO (13:11)
[2023-08-02] MEDS ORDERED: VISBIOME 112.51 EACH PO (13:13)
[2023-08-02 13:45] VITALS: BP 94/52
[2023-08-02 14:09] LABS: Influenza A, PCR NEGATIVE (NEGATIVE); Influenza B, PCR NEGATIVE (NEGATIVE); Resp Syncytial Virus, PCR NEGATIVE (NEGATIVE); SARS-Cov-2 (COVID-19) PCR, MMC NEGATIVE (NEGATIVE)
[2023-08-02 16:11] VITALS: BP 119/61
[2023-08-02 17:45] VITALS: BP 124/68
--- NOTE | 2023-08-02 18:28 | NUR ---
PT TRANSFERRED TO [facility] VIA GURNY, BED TO BED TX RELATED TO IMMOBILITY. CHANGED ATTENDS PRIOR TO DC WITH LG TKT LOOSE BM. CALLED REPORT TO NAYELI AT R 1610. SHE NEEDS SCRIPT FOR MARINOL, WILL CALL DR TINEO AND RN TO DRIVE TO FACILITY [facility].
== END 2023-08-02 18:03 | DRG 871 ==
LOC: ER 13:38 → PCU 13:39 → MEDS 07-27 14:33 → PCU 07-27 14:34 → MEDS 07-29 17:39 → ENPENDDIS 08-02 12:08 → MEDS 08-02 18:03
PROVIDERS: Emergency Medicine; Family Medicine; Hospitalist; Nurse Practitioner Acute Care; ADMIT Hospitalist
PROC: 5A2204Z Restoration of Cardiac Rhythm, Single (ICD-10-PCS; principal; 2023-07-26)
DX: A40.8 Other streptococcal sepsis (principal); J18.9 Pneumonia, unspecified organism; R65.21 Severe sepsis with septic shock; I47.10 Supraventricular tachycardia, unspecified; M46.26 Osteomyelitis of vertebra, lumbar region; E87.1 Hypo-osmolality and hyponatremia; Z68.1 Body mass index [BMI] 19.9 or less, adult; E46 Unspecified protein-calorie malnutrition; J44.0 Chronic obstructive pulmonary disease with (acute) lower respiratory infection; Z66 Do not resuscitate; Z51.5 Encounter for palliative care; Z11.52 Encounter for screening for COVID-19; R55 Syncope and collapse; D73.5 Infarction of spleen; K52.9 Noninfective gastroenteritis and colitis, unspecified; I08.2 Rheumatic disorders of both aortic and tricuspid valves; E87.6 Hypokalemia; E83.39 Other disorders of phosphorus metabolism; D50.9 Iron deficiency anemia, unspecified; F03.90 Unspecified dementia, unspecified severity, without behavioral disturbance, psychotic disturbance, mood disturbance, and anxiety; F17.210 Nicotine dependence, cigarettes, uncomplicated; D69.6 Thrombocytopenia, unspecified; E86.0 Dehydration; D63.8 Anemia in other chronic diseases classified elsewhere; Z88.2 Allergy status to sulfonamides; Z85.028 Personal history of other malignant neoplasm of stomach; Z85.01 Personal history of malignant neoplasm of esophagus
CPT/HCPCS: 0241U; 36415; 36569; 71045; 72148; 74018; 74170; 74176; 80047; 80048; 80053; 80069; 80202; 81001; 82330; 82565; 82607; 82728; 82746; 83540; 83550; 83735; 84100; 84439; 84443; 84484; 85014; 85025; 85027; 87040; 87077; 87086; 87186; 92610; 92960; 93005; 93010; 93306; 94640; 94664; 94760; 94762; 96361; 96365; 96372; 96375; 96376; 97110; 97116; 97162; 97166; 97530; 97535; 99285-25; A9270; C1751; G0378; J0153; J0696; J1650; J2540; J2704; J3370; J3475; J3480; J7030; J7050; Q0167; Q9967

== ENCOUNTER 2023-08-06 16:07 | Emergency (ER) | payer MEDICARE ==
[~2023-08-06] VITALS: Ht 172.7 cm; Wt 54.9 kg
[~2023-08-06 16:07] MED LIST changes: +ACET325 PO; +BANATROL PLUS1 EAC1 PO; +CREON DR 12,001 EACH PO; +JUVEN PACKET1 EAC3 PO; +LOPE2C PO; +METO25 PO; +MIDO5 PO; +MULTIPLE VITAM1 EACH PO; +Promod946 ML PO; +VISBIOME 112.51 EACH PO; +[UNRECOGNIZED DRUG - OTHER] IV
[2023-08-06 17:13] LABS: BASOPHILS ABSOLUTE AUTO 0.07 K/mm3 (0.00-0.23); BASOPHILS PERCENT AUTO 1 % (0-2); EOSINOPHILS ABSOLUTE AUTO 0.04 K/mm3 (0.00-0.68); EOSINOPHILS PERCENT AUTO 1 % (0-6); Hematocrit 29.8 % (37.0-53.0); Hemoglobin 9.7 g/dL (13.5-17.5); IMMATURE GRAN ABSOLUTE AUTO 0.03 K/mm3 (0.00-0.10); IMMATURE GRAN PERCENT AUTO 0 % (0-1); LYMPHOCYTES ABSOLUTE AUTO 1.41 K/mm3 (0.84-5.20); LYMPHOCYTES PERCENT AUTO 20 % (21-46); MONOCYTES ABSOLUTE AUTO 1.09 K/mm3 (0.16-1.47); MONOCYTES PERCENT AUTO 15 % (4-13); Mean Corpuscular HGB 28.4 pg (26.0-34.0); Mean Corpuscular HGB Conc 32.6 g/dL (31.5-36.5); Mean Corpuscular Volume 87 fL (80-100); Mean Platelet Volume 9.6 fL (9.1-12.4); NEUTROPHILS ABSOLUTE AUTO 4.44 K/mm3 (1.96-9.15); NEUTROPHILS PERCENT AUTO 63 % (41-73); Platelet Count 255 K/mm3 (150-400); RDW Coefficient Variation 18.2 % (11.7-14.2); RDW Standard Deviation 56.7 fL (35.1-46.3); Red Blood Cell Count 3.41 M/mm3 (4.30-5.90); White Blood Cell Count 7.08 K/mm3 (4.00-11.30)
[2023-08-06 17:36] LABS: Albumin, Blood 2.1 g/dL (3.4-5.0); Albumin/Globulin Ratio 0.6 (0.8-1.8); Bilirubin, Total 0.6 mg/dL (0.1-1.0); Bun/Creatinine Ratio 30.7 (12.0-20.0); Calcium, Blood 7.6 mg/dL (8.5-10.1); Creatinine, Blood 0.46 mg/dL (0.60-1.20); Globulin, Blood 3.4 g/dL (2.2-4.0); Magnesium, Blood 2.1 mg/dL (1.6-2.4); Potassium, Blood 3.6 mmol/L (3.5-5.5); Total Protein, Blood 5.5 g/dL (6.4-8.2)
[2023-08-06 19:00] VITALS: BP 118/64
== END 2023-08-06 19:25 | disposition home or self-care (01) ==
LOC: ER 16:07
PROVIDERS: Physician Assistant
DX: T82.524A Displacement of infusion catheter, initial encounter (principal); I47.10 Supraventricular tachycardia, unspecified; F17.200 Nicotine dependence, unspecified, uncomplicated; Z88.2 Allergy status to sulfonamides; Z79.899 Other long term (current) drug therapy
CPT/HCPCS: 80053; 83735; 85025; 93005; 93010; 96374; 96375; 99285-25; J0153; J1885; J7030

== ENCOUNTER 2024-05-11 22:43 | Inpatient (IN) | payer MEDICARE ==
[~2024-05-11] VITALS: Ht 172.7 cm; Wt 54.0 kg
[2024-05-11] MEDS ORDERED: MethylPREDNISolone Sod Succ 125 MG Vial IV ONE (22:50)
[2024-05-11] MEDS ORDERED: Ipratropium/Albuterol SulF 2.5-0.5MG/3 ML Amp INH ONE (22:50)
[2024-05-11 22:59] LABS: BASOPHILS ABSOLUTE AUTO 0.07 K/mm3 (0.00-0.23); BASOPHILS PERCENT AUTO 1 % (0-2); EOSINOPHILS ABSOLUTE AUTO 0.58 K/mm3 (0.00-0.68); EOSINOPHILS PERCENT AUTO 6 % (0-6); Hemoglobin 11.4 g/dL (13.5-17.5); IMMATURE GRAN ABSOLUTE AUTO 0.04 K/mm3 (0.00-0.10); IMMATURE GRAN PERCENT AUTO 0 % (0-1); LYMPHOCYTES ABSOLUTE AUTO 5.52 K/mm3 (0.84-5.20); LYMPHOCYTES PERCENT AUTO 54 % (21-46); MONOCYTES ABSOLUTE AUTO 1.07 K/mm3 (0.16-1.47); MONOCYTES PERCENT AUTO 10 % (4-13); Mean Corpuscular HGB 29.5 pg (26.0-34.0); Mean Corpuscular HGB Conc 30.8 g/dL (31.5-36.5); Mean Corpuscular Volume 96 fL (80-100); Mean Platelet Volume 9.8 fL (9.1-12.4); NEUTROPHILS PERCENT AUTO 29 % (41-73); Platelet Count 235 K/mm3 (150-400); RDW Coefficient Variation 15.7 % (11.7-14.2); RDW Standard Deviation 54.7 fL (35.1-46.3); Red Blood Cell Count 3.86 M/mm3 (4.30-5.90); White Blood Cell Count 10.28 K/mm3 (4.00-11.30)
[2024-05-11 23:18] LABS: Calcium, Blood 8.4 mg/dL (8.5-10.1); Creatinine, Blood 0.55 mg/dL (0.60-1.20); Magnesium, Blood 2.1 mg/dL (1.6-2.4); Potassium, Blood 4.4 mmol/L (3.5-5.5)
[2024-05-11 23:52] LABS: Influenza A, PCR NEGATIVE (NEGATIVE); Influenza B, PCR NEGATIVE (NEGATIVE); Resp Syncytial Virus, PCR NEGATIVE (NEGATIVE); SARS-Cov-2 (COVID-19) PCR, MMC NEGATIVE (NEGATIVE)
[2024-05-12] VITALS (16 sets, daily range): BP systolic 75–136; BP diastolic 52–84
[2024-05-12 01:13] LABS: PCO2 Venous 75.3 mmHg (38-42)
[2024-05-12 01:14] LABS: Base Excess Venous -6.7 mmol/L; Bicarbonate Venous 18.2 mmol/L (24.0-30.0)
[2024-05-12] MEDS ORDERED: Midodrine 5 MG Tab PO SCH (05:00)
--- NOTE | 2024-05-12 07:44 | NUR ---
ASSUMING CARE BEDSIDE REPORT FROM OFF GOING NURSE. ASSUMING CARE OF THIS PATIENT AT 0700. VITALS TAKEN AT SHIFT CHANGE BY WOOD CRAFTSMAN. VSS STABLE.
--- NOTE | 2024-05-12 07:45 | NUR ---
ASSUMPTION OF CARE/SHIFT SUMMARY PT ARRIVED TO PCU AROUND 0455 VIA GURNEY. TRANSFERRED TO PCU HOSPITAL BED. PT ARRIVED ON BIPAP SETTING 31/03, 40% FIO2 AND TOLERATING WELL. PT ALSO ARRIVED WITH BILATERAL THORAVENT CHEST TUBES WHICH WERE PLACED TO SUCTION UPON ARRIVAL. 300 MLS OF SEROSANGINEOUS FLUID OUT SINCE ARRIVAL FROM L CHEST TUBE. R SIDE WITH NO DRAINAGE YET. SPO2 99-100% ON BIPAP, RR 22 - 30'S, WOB WNL. PT LETHARGIC, ORIENTED X1 TO SELF/PERSON. PT BRIEFLY OPENS EYES TO TOUCH AND PAIN. ATTEMPTS TO HOLD CONVERSATION BUT QUICKLY FALLS BACK TO SLEEP. PT NPO AT THIS TIME, BEDREST. SKIN INTACT WITH SCATTERED SCABS AND BRUISING. SMALL RED/PURPLE SPOT NOTED ON THE L SCAPULA/BACK AREA, NON-BLANCHABLE; PICS IN CHART. AM CXR COMPLETED, RESULTS PENDING. WILL UPDATE ONCOMING RN.
[2024-05-12 08:07] LABS: Base Excess Venous -6.4 mmol/L; Bicarbonate Venous 18.8 mmol/L (24.0-30.0); PCO2 Venous 46.7 mmHg (38-42); pH Blood Venous 7.26 (7.34-7.37)
[2024-05-12] MEDS ORDERED: Metoprolol Tartrate 25 MG Tab PO SCH (09:00)
[2024-05-12] MEDS ORDERED: Enoxaparin 40 MG/0.4 ML SYR SC SCH (09:00)
[2024-05-12] MEDS ORDERED: CefTRIAXone Sodium 2,000 MG in NS 100 ML IV SCH (09:36)
[2024-05-12] MEDS ORDERED: Azithromycin 500 MG in NS 250 ML IV ONE (09:40)
[2024-05-12] MEDS ORDERED: NS 100 ML IV ONE (09:51)
[2024-05-12] MEDS ORDERED: CefTRIAXone 2000 MG Vial ONE (09:52)
[2024-05-12] MEDS ORDERED: Azithromycin 500 MG VIAL ONE (09:52)
[2024-05-12] MEDS ORDERED: NS 250 ML IV ONE (09:52)
[2024-05-12] MEDS ORDERED: Ipratropium/Albuterol SulF 2.5-0.5MG/3 ML Amp INH SCH (11:05)
[2024-05-12] MEDS ORDERED: Albuterol 2.5 MG/3 ML VIAL INH PRN (11:05)
[2024-05-12] MEDS ORDERED: Insulin Human Lispro 100 Units/ML 3ML Syringe SC SCH ×2 (12:00→16:30)
--- NOTE | 2024-05-12 13:17 | NUR ---
NURSE NOTES PT SITTING UP IN BED ON 3 LITERS NC, BREATHING EVEN AND UNLABORED. PT MEDICATED PER EMAR W/ MIDODRINE 5mg. PT PROVIDED W/ FRESH WATER, CALL LIGHT IN REACH.
[2024-05-12 16:38] LABS: Bicarbonate Venous 21.6 mmol/L (24.0-30.0); PCO2 Venous 42.9 mmHg (38-42); pH Blood Venous 7.34 (7.34-7.37)
--- NOTE | 2024-05-12 18:00 | NUR ---
SHIFT SUMMARY A+O X4, REMOVED FROM BIPAP BY RT, ON NC AT 2 LITERS. PT HAS HAD SOFT BP INTERMET, MAP HAS STAYED ABOVE 60 THROUGHTOUT SHIFT. PT SATURATION ABOVE 90%. DR. OLVERA CONST. EVAUL OF CHEST TUBE AND DRAINAGE SYSTEM, PLACED TEGADERM TO SECURE LINES. PT BREATHING EVEN AND UNLABORED. PT ABLE TO REPOSITION IN BED. USING URINAL IN BED TO VOID. PT L LEG DEFORMED FROM PREVIOUS ACCIDENT. CALL LIGHT IN REACH OF PT.
[2024-05-12] MEDS ORDERED: Melatonin 5 MG Tablet PO PRN (21:00)
[2024-05-12] MEDS ORDERED: Acetaminophen 325 MG TABLET PO PRN (21:05)
[2024-05-13] VITALS (11 sets, daily range): BP systolic 88–105; BP diastolic 49–61
--- NOTE | 2024-05-13 05:16 | NUR ---
SHIFT SUMMARY- PATIENT TOOK OFF OWN OXYGEN DURING THE NIGHT BUT O2 SATS >92% ON RA. BL CHEST TUBES WITH NO NEW OUTPUT OVERNIGHT. LEFT CHEST TUBE HAS SMALL AIR LEAK WHICH SUPPLY CHAIN COORDINATOR IS AWARE OF. RIGHT CHEST TUBE WITH NO DRAINAGE- PER PULM MAY BE REMOVED TODAY. REPEAT CXR COMPLETED THIS AM, RESULTS PENDING. PATIENT'S MARITZA SOFT OVERNIGHT BUT TRENDING BACK UP. TAKES MIDODRINE AT HOME FOR HYPOTENSION, EF- 38%. ASYMPTOMATIC. BLADDER SCAN WITH 500ML URINE, PT ENCOURAGED TO VOID AND VOIDED 450ML IN URINAL. PRN TYLENOL ORDERED FOR MILD PAIN AT CHEST TUBE INSERTION SITES, PROVIDED RELIEF. PRN MELATONIN ORDERED PER PATIENT REQUEST FOR INSOMNIA. NO OTHER ACUTE EVENTS OVERNIGHT. PATIENT A&OX4 AND PLEASANT.
[2024-05-13] MEDS ORDERED: NS 100 ML IV ONE (08:07)
[2024-05-13] MEDS ORDERED: CefTRIAXone 2000 MG Vial ONE (08:08)
--- NOTE | 2024-05-13 12:04 | NUR ---
Upon receiving a referral for spiritual care, I visited the patient. Patient is pleasant and has a good sense of humor. He tells me about the of his spouse and is tearful as he shares about her heart attack and how he has struggled with the grief for many yrs. He talks about his family unit complications and the ache this causes him. He also shares about his Sabianist jennifer and that he has gained much strength from his prayers and connection to God. 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 I reinforce his helpful attitudes and perspectives, hear confession and provided grief support, therapeutic listening and prayer. Patient responded well and showed signs of catharsis and greater peace. I will continue to remain available to patient and family.
[2024-05-13 12:28] LABS: Glucose, Body Fluid 6 mg/dL; Lactate Dehydrogenase, Body Fl 606 U/L; Protein, Body Fluid 0.8 g/dL
--- NOTE | 2024-05-13 18:20 | NUR ---
SHIFT SUMMARY; ASSUMED CARE AT 0700. A/A/OX4. BILATERAL PLEUA VENTS IN PLACE, DRESSINGS SECURE, NO CREPITIS. RIGHT SIDE REMOVED FROM SUCTION BY DR. OLVERA. LEFT SIDE REMAINS TO SUCTION. SLIGHT BUBBLE DUE TO AIR LEAK, PER DR. OLVERA WILL MONITOR AND WAIT FOR IT TO RESOLVE. BED BATH TODAY, DENTURE CARE. USES COMMODE WITH ASSISTANCE AND URINAL AT BEDSIDE. VSS, 96% SATS ON RA. L/S CLEAR T/O. NO ACUTE CHANGES, WILL CONTINUE TO MONITOR AND TREAT UNTIL CHANGE OF SHIFT.
[2024-05-14] VITALS (7 sets, daily range): BP systolic 86–111; BP diastolic 55–66
--- NOTE | 2024-05-14 03:52 | NUR ---
SHIFT SUMMARY- PATIENT HAD A GOOD NIGHT, VSS ON RA BESIDES SOME LOW BP EPISODES THAT WERE ASYMPTOMATIC. PATIENT ON MIDODRINE AT BASELINE. A&OX4, SOME COMPLAINTS OF PAIN AT CHEST TUBE INSERTION SITES MEDICATED WITH PRN TYLENOL WHICH PROVIDED RELIEF. NSR ON TELE WITH [facility]. PLAN IS FOR REPEAT CXR THIS AM WITH POSSIBLE R CHEST TUBE REMOVAL IF THERE IS RESOLUTION OF R PNEUMOTHORAX. LEFT CHEST TUBE STILL HOOKED TO SUCTION WITH PERSISTENT AIR LEAK PRESENT. NO OUTPUT OVERNIGHT. PATIENT VOIDING WITHOUT DIFFICULTY IN URINAL. NO BM THIS SHIFT. RECEIVING IV ROCEPHIN FOR EMPIRIC ANTIBIOTIC COVERAGE. NO EPISODES OF SVT TONIGHT.
[2024-05-14 04:29] LABS: Bun/Creatinine Ratio 21.5 (12.0-20.0); Calcium, Blood 8.5 mg/dL (8.5-10.1); Creatinine, Blood 0.56 mg/dL (0.60-1.20); Potassium, Blood 4.3 mmol/L (3.5-5.5)
--- NOTE | 2024-05-14 07:15 | NUR ---
ASSUMING CARE BEDSIDE SHIFT REPORT FROM OFF GOING NOC NURSE. PT SITTING UP IN BED, ASSESSED CHEST TUBES AND DRAINAGE SYSTEM W/ OFF GOING NURSE. PT BREATHING EVEN AND UNLABORED OXYGEN SATURATION READING 95% ON MONITOR. CALL LIGHT IN REACH
--- NOTE | 2024-05-14 09:02 | NUR ---
PROGRESS NOTE PT MEDICATED PER EMAR, ASSISTED PT TO BSC, PT VOIDED 200MLS OF YELLOW COLORED URINE. ASSISTED PT TO PUT ON PULL UP BRIEFS, PT THEN ASSISTED TO RECLINER CHAIR. PT CIELO MOVEMENT WELL, WITH MIN ASSISTANCE. CALL LIGHT IN REACH OF PT.
--- NOTE | 2024-05-14 11:00 | NUR ---
PROGRESS NOTE PT ROUNDED ON BY DR. ISABELLA FALCON R SIDE CHEST TUBE REMOVED. LEFT SIDE STILL INTACT AND CONECTED TO CLOSED SYSTEM DRAINAGE. PLACED TERGADERM DRESSING OVER TUBE TO REINFORCE IT. PT SITTING UP IN RECLINER AT THIS TIME, CALL LIGHT IN REACH. CONT. PULSE OX READING 95% ON MONITOR.
--- NOTE | 2024-05-14 18:24 | NUR ---
SHIFT SUMMARY PT A+O X4, REPOSTIONING SELF IN BED AND CHAIR, PT SBA TO THE BSC. PT VOIDING YELLOW COLORED URINE THROUGH OUT SHIFT, PT HAD A BOWEL MOVEMENT TODAY. R SIDE CHEST TUBE REMOVED TODAY BY DAWSON CORDERO OVER SITE. L SIDE CHEST TUBE REMAIN IN TACT AND HOOKED TO DRAINAGE SYSTEM AND SUCTION, DRESSING IN TACT. NO CREPITUS NOTED THROUGHOUT SHIFT. VSS STABLE. PT CURRENTLY VISITING WITH FAMILY AT BEDSIDE. CALL LIGHT IN REACH OF PT. WILL CONTINUE TO MONITOR UNTIL END OF SHIFT.
[2024-05-15 04:50] VITALS: BP 108/66
--- NOTE | 2024-05-15 06:34 | NUR ---
SHIFT SUMMARY PATIENT ALERT, ORIENTED x4. ABLE TO MAKE NEEDS KNOWN TO STAFF. BP STABLE. TELE READING SR DURING THE NIGHT, NO CARDIAC EVENTS NOTED BY CNC SERVICE ENGINEER. PATIENT REMAINED ON RA WITH SPO2 >90%. LEFT CHEST TUBE IN PLACE, HOOKED TO SUCTION PER ORDER. SOME INTERMITTENT BUBBLING NOTED, PROVIDER AWARE OF BUBBLING. PATIENT TRANSFERRING TO BEDSIDE COMMODE WITH STAFF ASSISTANCE, ADEQUATE OUTPUT. NO OTHER SIGNIFICANT CHANGES THIS SHIFT, WILL REPORT TO DAY SHIFT RN.
[2024-05-15 08:30] VITALS: BP 112/58
--- NOTE | 2024-05-15 09:13 | NUR ---
Assisted up to BSC for BM. Movements are loose, chronically pt states. Has had removal of bowels from cancer, he states.
[2024-05-15 12:59] VITALS: BP 98/56
--- NOTE | 2024-05-15 13:14 | NUR ---
Spiritual care visit conducted. Patient is lying in bed and alert. He talks at length about struggling to find meaning, purpose and direction since the of his spouse. He is clear on what his Orthodox tradition would say about God's plan for his life, His perfect timing and His greater purposes yet the ache remains in his heart. We explore sources of meaning and value, we discuss his unique gift of bringing bonilla and humor to others and the strength that others feel becuase of his presence. We talk about the love of his family and their desire to have him in their world. I provided therapeutic listening and prayer. Patient responded well and showed signs of increased peace and purpose. I will continue to remain available to patient and family.
[2024-05-15 15:46] VITALS: BP 110/61
[2024-05-15 15:57] VITALS: BP 108/56
--- NOTE | 2024-05-15 17:28 | NUR ---
pt has been alert, oriented and pleasantly conversant this shift. Chest tube on he left chest remains intact, no crepitus. No dyspnea, at rest nor with activity to BSC and eating. No drainage from the chest tube, but continuous gentle bubbling noted in the air leak monitor. Denies pain all shift.
[2024-05-15 20:55] VITALS: BP 109/73
[2024-05-16] VITALS (7 sets, daily range): BP systolic 98–123; BP diastolic 50–69
--- NOTE | 2024-05-16 05:45 | NUR ---
SHIFT SUMMARY PATIENT ALERT, ORIENTEDx4. ABLE TO MAKE NEEDS KNOWN TO STAFF. BP STABLE, TELE READING SR/ST DURING THE NIGHT. PATIENT REMAINED ON RA WITH SPO2 >90%. CHEST TUBE IN PLACE TO LEFT RIBS/CHEST, MINIMAL BUBBLING NOTED IN CHAMBER, HOOKED TO SUCTION PER ORDER. PATIENT USING BEDSIDE COMMODE AND URINAL WITH ADEQUATE OUTPUT. NO OTHER CHANGES DURING THE NIGHT, WILL REPORT TO DAY SHIFT RN.
--- NOTE | 2024-05-16 07:00 | NUR ---
ASSUMPTION OF CARE PT RESTING, WAKENS TO VERBAL STIMULI. PT STS HE NEEDS TO USE THE COMMODE. MINIMAL ASSIST TO COMMODE. PT HAS L CHEST TUBE IN PLACE. VSS AT THIS TIME. CALL LIGHT WITHIN REACH. SEE SHIFT ASSESSMENT.
--- NOTE | 2024-05-16 18:18 | NUR ---
SHIFT SUMMARY PT IS A&OX4 WITH PLEASANT AFFECT. LUNGS REMAIN DIM. L CHEST TUBE REMAINS IN PLACE TO SUCTION WITH INTERMITTENT LEAK. NO CREPITUS NOTED. PT HAS DENIED SOB THROUGHOUT THE DAY. PT RECEIVED SCHEDULED MIDODRINE, MAP REMAINED >65. PT HAD ONE SHORT RUN OF SVT THIS SHIFT, PT ASYMPTOMATIC DURING THIS. PT HAS HAD SEVERAL BMS THIS SHIFT. PT HAS VOIDED WITHOUT DIFFICULTY. VSS THROUGHOUT THE SHIFT. BED IN LOW POSITION, CALL LIGHT WITHIN REACH.
[2024-05-17 04:30] VITALS: BP 102/59
--- NOTE | 2024-05-17 05:31 | NUR ---
SHIFT SUMMARY PATIENT ALERT, ORIENTED x4. ABLE TO MAKE NEEDS KNOWN TO STAFF. CHEST TUBE REMAINS IN PLACE TO SUCTION, LESS BUBBLING NOTED THIS SHIFT WELL SCANT AMOUNT OF DRAINAGE OUT. REMAINS ON RA WITH SPO2 >90%. BP STABLE. OCCASIONAL RUNS OF SVT BUT PATIENT ASYMPOTMAIIC. PATIENT STANDBY ASSIST TO BEDSIDE COMMODE. ADEQUATE OUTPUT THIS SHIFT. NO OTHER CHANGES, WILL REPORT TO DAY SHIFT RN.
[2024-05-17 07:14] VITALS: BP 100/59
[2024-05-17 12:00] VITALS: BP 106/60
[2024-05-17 12:11] LABS: Percent Saturation 9.6 % (20.0-50.0)
[2024-05-17 17:30] VITALS: BP 140/61
[2024-05-17 17:41] VITALS: BP 140/61
--- NOTE | 2024-05-17 19:29 | NUR ---
COBRA TRANSFER PT ALERT, ORIENTED X4; CALM AND [facility]OPER[facility]IVE [facility] CARE. PT DENIES PAIN, CHEST PAIN/PRESSURE, SOB, NAUSEA, DIZZINESS. PT HAD CHEST TUBE TO LEFT SIDE, CREPITUS NOTED INTO ARMPIT, SET TO SUCTION THIS AM, REMOVED FROM APPROX 8:10, 10 XRAY NOTED WORSENING, DR AT BEDSIDE RESTARTED SUCTION. LS DIM T/O. TELE SINUS, BP STABLE. ABD SOFT, NONTENDER +BT. OTHER VSS. NO OTHER ACUTE CHANGES NOTED. REPORT GIVEN TO MATT Harp ASSUMING CARE OF PATIENT UPON COBRA TRANSFER TO [facility]. PT LEFT ROOM AT APPROX [id number].
== END 2024-05-17 19:10 | disposition short-term general hospital (02) | DRG 190 ==
LOC: ER 22:43 → PCU 05-12 03:44
PROVIDERS: Emergency Medicine; Internal Medicine; Internal Medicine Critical Care Medicine; ADMIT Family Medicine
DX: J43.9 Emphysema, unspecified (principal); E43 Unspecified severe protein-calorie malnutrition; J96.01 Acute respiratory failure with hypoxia; G92.8 Other toxic encephalopathy; I50.21 Acute systolic (congestive) heart failure; J96.02 Acute respiratory failure with hypercapnia; E87.29 Other acidosis; I48.20 Chronic atrial fibrillation, unspecified; J93.12 Secondary spontaneous pneumothorax; Z68.1 Body mass index [BMI] 19.9 or less, adult; I35.0 Nonrheumatic aortic (valve) stenosis; D50.9 Iron deficiency anemia, unspecified; Z66 Do not resuscitate; I77.819 Aortic ectasia, unspecified site; Z85.01 Personal history of malignant neoplasm of esophagus; Z98.890 Other specified postprocedural states; Z96.641 Presence of right artificial hip joint; Z87.891 Personal history of nicotine dependence; Z88.2 Allergy status to sulfonamides; Z79.899 Other long term (current) drug therapy
CPT/HCPCS: 0241U; 32551; 36415; 71045; 71260; 80048; 82607; 82803; 82945; 82947; 83540; 83550; 83605; 83615; 83735; 83880; 84157; 84484; 85025; 87040; 87070; 87075; 87205; 93005; 93010; 94640; 94660; 94664; 94760; 94762; 96374; 99285-25; A9270; C8929; J0456; J0696; J1650; J2919; J7050; Q9957; Q9967

== ENCOUNTER 2024-07-19 20:21 | Inpatient (IN) | payer MEDICARE ==
[~2024-07-19] VITALS: Ht 175.3 cm; Wt 51.3 kg
[2024-07-19] MEDS ORDERED: Amiodarone HCl200 MG PO (21:04)
[2024-07-19 23:06] LABS: BASOPHILS ABSOLUTE AUTO 0.09 K/mm3 (0.00-0.23); BASOPHILS PERCENT AUTO 1 % (0-2); EOSINOPHILS ABSOLUTE AUTO 0.07 K/mm3 (0.00-0.68); EOSINOPHILS PERCENT AUTO 1 % (0-6); Hematocrit 35.6 % (37.0-53.0); Hemoglobin 11.1 g/dL (13.5-17.5); IMMATURE GRAN ABSOLUTE AUTO 0.03 K/mm3 (0.00-0.10); IMMATURE GRAN PERCENT AUTO 0 % (0-1); LYMPHOCYTES PERCENT AUTO 24 % (21-46); MONOCYTES ABSOLUTE AUTO 1.35 K/mm3 (0.16-1.47); MONOCYTES PERCENT AUTO 16 % (4-13); Mean Corpuscular HGB 29.1 pg (26.0-34.0); Mean Corpuscular HGB Conc 31.2 g/dL (31.5-36.5); Mean Corpuscular Volume 93 fL (80-100); NEUTROPHILS ABSOLUTE AUTO 4.99 K/mm3 (1.96-9.15); NEUTROPHILS PERCENT AUTO 58 % (41-73); Platelet Count 235 K/mm3 (150-400); RDW Coefficient Variation 14.4 % (11.7-14.2); RDW Standard Deviation 49.4 fL (35.1-46.3); Red Blood Cell Count 3.81 M/mm3 (4.30-5.90); White Blood Cell Count 8.63 K/mm3 (4.00-11.30)
[2024-07-19 23:33] LABS: Albumin/Globulin Ratio 0.7 (0.8-1.8); Bilirubin, Total 0.2 mg/dL (0.1-1.0); Bun/Creatinine Ratio 18.1 (12.0-20.0); Calcium, Blood 8.6 mg/dL (8.5-10.1); Creatinine, Blood 0.55 mg/dL (0.60-1.20); Globulin, Blood 4.3 g/dL (2.2-4.0); Magnesium, Blood 2.2 mg/dL (1.6-2.4); Potassium, Blood 4.5 mmol/L (3.5-5.5); Total Protein, Blood 7.3 g/dL (6.4-8.2)
[2024-07-20 00:22] LABS: Influenza A, PCR NEGATIVE (NEGATIVE); Influenza B, PCR NEGATIVE (NEGATIVE); Resp Syncytial Virus, PCR NEGATIVE (NEGATIVE); SARS-Cov-2 (COVID-19) PCR, MMC NEGATIVE (NEGATIVE)
[2024-07-20] MEDS ORDERED: Ondansetron HCl 2 MG / ML 2ML Vial IV PRN (02:55)
[2024-07-20] MEDS ORDERED: Ipratropium/Albuterol SulF 2.5-0.5MG/3 ML Amp INH PRN (02:55)
[2024-07-20] MEDS ORDERED: NS 1,000 ML IV SCH (02:55)
[2024-07-20] MEDS ORDERED: FLU VACC TS2024-25(6MOS UP)/PF 45 MCG/0.5 ML SYRINGE IM SCH (02:55)
[2024-07-20] MEDS ORDERED: FentaNYL Citrate 50 MCG/ML 2 ML Injection IV PRN (03:00)
[2024-07-20] MEDS ORDERED: Acetaminophen 325 MG TABLET PO PRN (03:00)
[2024-07-20 06:35] LABS: BASOPHILS ABSOLUTE AUTO 0.05 K/mm3 (0.00-0.23); BASOPHILS PERCENT AUTO 1 % (0-2); EOSINOPHILS ABSOLUTE AUTO 0.03 K/mm3 (0.00-0.68); EOSINOPHILS PERCENT AUTO 0 % (0-6); Hematocrit 31.2 % (37.0-53.0); Hemoglobin 10.1 g/dL (13.5-17.5); IMMATURE GRAN ABSOLUTE AUTO 0.03 K/mm3 (0.00-0.10); IMMATURE GRAN PERCENT AUTO 0 % (0-1); LYMPHOCYTES ABSOLUTE AUTO 1.61 K/mm3 (0.84-5.20); LYMPHOCYTES PERCENT AUTO 21 % (21-46); MONOCYTES ABSOLUTE AUTO 1.09 K/mm3 (0.16-1.47); MONOCYTES PERCENT AUTO 14 % (4-13); Mean Corpuscular HGB 28.9 pg (26.0-34.0); Mean Corpuscular HGB Conc 32.4 g/dL (31.5-36.5); Mean Corpuscular Volume 89 fL (80-100); Mean Platelet Volume 9.9 fL (9.1-12.4); NEUTROPHILS ABSOLUTE AUTO 4.76 K/mm3 (1.96-9.15); NEUTROPHILS PERCENT AUTO 63 % (41-73); Platelet Count 223 K/mm3 (150-400); RDW Coefficient Variation 14.4 % (11.7-14.2); RDW Standard Deviation 46.9 fL (35.1-46.3); Red Blood Cell Count 3.49 M/mm3 (4.30-5.90); White Blood Cell Count 7.57 K/mm3 (4.00-11.30)
[2024-07-20 07:27] LABS: Albumin, Blood 2.8 g/dL (3.4-5.0); Albumin/Globulin Ratio 0.8 (0.8-1.8); Bilirubin, Total 0.3 mg/dL (0.1-1.0); Calcium, Blood 8.7 mg/dL (8.5-10.1); Creatinine, Blood 0.59 mg/dL (0.60-1.20); Globulin, Blood 3.7 g/dL (2.2-4.0); Potassium, Blood 4.2 mmol/L (3.5-5.5); Total Protein, Blood 6.5 g/dL (6.4-8.2)
[2024-07-20] MEDS ORDERED: Enoxaparin 40 MG/0.4 ML SYR SC SCH (09:00)
[2024-07-20] MEDS ORDERED: Amiodarone HCl 200 MG Tab PO SCH (09:00)
[2024-07-20 10:34] VITALS: BP 131/63
--- NOTE | 2024-07-20 12:46 | NUR ---
PULMONARY CONSULT CALLED TO DR FALCON
[2024-07-20 15:50] VITALS: BP 117/61
--- NOTE | 2024-07-20 18:00 | NUR ---
SHIFT SUMMARY PT CHANGED TO REG DIET. HISTORICAL RECORDS ADMINISTRATOR CONSULTED AND EVALUATED PT TODAY. PT HAS CHEST TUBE TO R AXILLA TO DRY SUCTION. LS CLEAR AND NO RESP DISTRESS. PLAN IS FOR PT TO DISCUSS WITH FAMILY THE TREATMENT GOING FORWARD WHICH WAS PRESENTED BY DR FALCON WITH POSSIBLITY OF TRANSFER TO ANOTHER FACILITY FOR SURGERY TO CORRECT PNEUMO. PT WAS UP MULTIPLE TIMES WITH SBA TO VOID/HAVE BM. PT C/O NO PAIN OR DISTRESS.
[2024-07-20 20:34] VITALS: BP 111/59
[2024-07-21 00:03] VITALS: BP 101/58
[2024-07-21 03:24] VITALS: BP 110/65
--- NOTE | 2024-07-21 04:35 | NUR ---
SHIFT SUMMARY NO ACUTE CHANGES OVERNIGHT. CHEST TUBE TO RIGHT CHEST PATENT, -20 DRY SUCTION, SEROSANGUINOUS DRAINAGE. PT ENDORSES PAIN 1-2/10 TO RIGHT CHEST, DESCRIBES "A LITTLE SORE BUT NOT TOO BAD". DECLINES ANALGESICS WHEN OFFERED. LUNGS CLEAR ALL LOBES, GOOD AIR MOVEMENT. 1PA PIVOT TO BSC. TOLERATING PO INTAKE. VOIDING. PASSING BMS. A&OX4. ABLE TO VOICE NEEDS, CALL LIGHT USED APPROPRIATELY. PT VOICED UNDERSTANDING OF PLAN OF CARE, DENIES QUESTIONS/CONCERNS AT THIS TIME.
--- NOTE | 2024-07-21 07:28 | NUR ---
SUCTION STOP SUCTION STOPPED PER PULMONARY MD AT THIS TIME, TUBE CLAMPED WELL
[2024-07-21 08:19] VITALS: BP 125/60
--- NOTE | 2024-07-21 12:07 | NUR ---
JOSE TRANSFER PT HAS ACCEPTING MD AT [facility] AND A BED IS OPEN FOR HIM. TRANSFER PACKET TO BE PUT TOGETHER AND TRANSPORT TO BE SET UP.
[2024-07-21 13:09] VITALS: BP 125/60
--- NOTE | 2024-07-21 15:11 | NUR ---
DISCHARGE SUMMARY REPORT CALLED TO [facility] WITH PATIENT INFORMATION GIVEN TO RECEIVING RN, ALL QUESTIONS ANSWERED. FAMILY WAS AT BEDSIDE AT TIME OF ANALOG DEVICE DESIGNER BY EMS FOR TRANSPORT.
== END 2024-07-21 14:03 | disposition short-term general hospital (02) | DRG 190 ==
LOC: ER 20:21 → SURS 07-20 02:25 → ERHOLD 07-20 02:25 → SURS 07-20 10:36
PROVIDERS: Student in an Organized Health Care Education/Training Program; ADMIT Internal Medicine
PROC: 0W9930Z Drainage of Right Pleural Cavity with Drainage Device, Percutaneous Approach (ICD-10-PCS; principal; 2024-07-20)
DX: J43.9 Emphysema, unspecified (principal); I50.23 Acute on chronic systolic (congestive) heart failure; J96.01 Acute respiratory failure with hypoxia; J93.12 Secondary spontaneous pneumothorax; I42.0 Dilated cardiomyopathy; I48.91 Unspecified atrial fibrillation; F17.210 Nicotine dependence, cigarettes, uncomplicated; F10.20 Alcohol dependence, uncomplicated; M88.9 Osteitis deformans of unspecified bone; Z85.01 Personal history of malignant neoplasm of esophagus; Z88.2 Allergy status to sulfonamides
CPT/HCPCS: 0241U; 32551; 71045; 80053; 83735; 83880; 84484; 85025; 93005; 93010; 94760; 99285-25; A9270; J1650